=== PATIENT | male | born 1970 | race African-American/Black ===

== ENCOUNTER 2019-07-06 14:57 | Emergency (ER) | payer OTHER ==
[~2019-07-06] VITALS: Ht 188 cm; Wt 109.0 kg
[~2019-07-06 14:57] MED LIST: ASPI-1497 PO
[2019-07-06 16:11] VITALS: BP 146/90
[2019-07-06] MEDS ORDERED: HYDROCODONE/ACETAMINOPHEN 5/325MG TABLET PO ONE (16:15)
== END 2019-07-06 17:37 | disposition home or self-care (01) ==
LOC: ER 14:57
DX: S80.02XA Contusion of left knee, initial encounter (principal); S89.92XA Unspecified injury of left lower leg, initial encounter; I10 Essential (primary) hypertension; Y93.71 Activity, boxing; Y92.89 Other specified places as the place of occurrence of the external cause; Y99.8 Other external cause status
CPT/HCPCS: 73562; 99283; L1830